=== PATIENT | female | born 1965 | race Caucasian/White ===

== ENCOUNTER 2020-10-23 10:27 | Emergency (ER) | payer OTHER ==
[~2020-10-23] VITALS: Ht 172.7 cm; Wt 90.7 kg
[2020-10-23] MEDS ORDERED: TRELEGY ELLIPT1 EACH INH (10:47)
[2020-10-23] MEDS ORDERED: PROTONIX 20 MG20 MG PO (10:47)
[2020-10-23] MEDS ORDERED: SINGULAIR 10 MG10 M1 PO (10:47)
[2020-10-23] MEDS ORDERED: FLONASE 0.05%50 MCG NARES (10:47)
[2020-10-23] MEDS ORDERED: ZINC30 M1 PO (10:48)
[2020-10-23] MEDS ORDERED: VITAMIN B-121000 MC2 SUBLING (10:48)
[2020-10-23] MEDS ORDERED: VITAMIN D310 MC4 PO (10:48)
[2020-10-23] MEDS ORDERED: ZYRTEC10 M5 PO (10:48)
[2020-10-23] MEDS ORDERED: NORCO5 PO (12:22)
[2020-10-23] MEDS ORDERED: IBUPROFEN 600600 M1 PO (12:22)
[2020-10-23] MEDS ORDERED: ONDANSETRON HCL4 M2 PO (12:43)
[2020-10-23 12:51] VITALS: BP 123/65
== END 2020-10-23 12:52 | disposition home or self-care (01) ==
LOC: M.ERS 10:27
DX: S42.002A Fracture of unspecified part of left clavicle, initial encounter for closed fracture (principal); M25.561 Pain in right knee; J45.909 Unspecified asthma, uncomplicated; K21.9 Gastro-esophageal reflux disease without esophagitis; Z88.1 Allergy status to other antibiotic agents; Z88.2 Allergy status to sulfonamides; X50.9XXA Other and unspecified overexertion or strenuous movements or postures, initial encounter; Y93.89 Activity, other specified; Y92.89 Other specified places as the place of occurrence of the external cause; Y99.8 Other external cause status